=== PATIENT | female | born 1965 | race Hispanic/Latino ===

== ENCOUNTER 2016-11-02 03:14 | Emergency (ER) | payer OTHER ==
--- NOTE | 2016-11-02 03:24 | ED PDOC ---
Arrival/HPI - General Time Seen by Provider: 11/02/16 03:18 Historian: Patient - History of Present Illness Narrative History of Present Illness (Text): 11/02/16 03:31 Rebeca Merchant is a 51 year old female who presents to the emergency department for evaluation of allergic rash on face s/p applying Neutrogena makeup remover cream 2 days prior. States she developed redness and irritation to the face immediately after applying the cream, and was evaluated by drier operator helper yesterday, who started patient on a topical cream. Patient states that symptoms have not improved after applying the cream and notes of pain to right infraorbital area. States she took Tylenol for pain and other OTC allergy medications for minimal relief. Denies fever, chills, headache, swelling, throat pain, difficulty breathing, chest pain, nausea, vomiting, or any other complaints at this time. Time/Duration: < week (2 days ) Symptom Onset: Gradual Symptom Course: Unchanged Severity Level: Mild Activities at Onset: Light Past Medical History - Provider Review Nursing Documentation Reviewed: Yes - Infectious Disease Hx of Infectious Diseases: None - Tetanus Immunization Tetanus Immunization: Unknown - Past Medical History Past Medical History: No Previous - Cardiac Hx Pacemaker: No - Neurological Hx Paralysis: No - Hematological/Oncological Hx Blood Transfusions: No - Musculoskeletal/Rheumatological Hx Musculoskeletal Disorders: No - Psychiatric Hx Emotional Abuse: No Hx Physical Abuse: No Hx Substance Use: No - Past Surgical History Past Surgical History: No Previous - Anesthesia Hx Anesthesia Reactions: No Hx Malignant Hyperthermia: No - Suicidal Assessment Feels Threatened In Home Enviroment: No Family/Social History - Physician Review Nursing Documentation Reviewed: Yes Family/Social History: No Known Family HX Smoking Status: Never Smoked Hx Alcohol Use: No Hx Substance Use: No Hx Substance Use Treatment: No Allergies/Home Meds Allergies/Adverse Reactions: Allergies No Known Allergies Allergy (Verified 11/17/15 22:56) Home Medications: Home Meds Medication Instructions Recorded Confirmed Dexlansoprazole [Dexilant] 60 mg PO DAILY 12/11/13 11/20/15 Review of Systems - Physician Review All systems were reviewed & negative as marked: Yes - Review of Systems Constitutional: Normal. absent: Fatigue, Fevers Eyes: absent: Vision Changes, Photophobia Respiratory: absent: SOB, Cough, Sputum Cardiovascular: absent: Chest Pain, Palpitations Gastrointestinal: absent: Abdominal Pain, Diarrhea, Nausea, Vomiting Skin: Rash (redness and pain to face ) Neurological: Normal. absent: Headache, Dizziness Physical Exam Vital Signs Reviewed: Yes Vital Signs Temp Pulse Resp BP Pulse Ox 11/02/16 03:26 97.9 F 87 16 122/87 98 Temperature: Afebrile Blood Pressure: Normal Pulse: Regular Respiratory Rate: Normal Appearance: Positive for: Well-Appearing, Non-Toxic, Comfortable Pain Distress: None Mental Status: Positive for: Alert and Oriented X 3 - Systems Exam Head: Present: Atraumatic, Normocephalic, Other (mild erythematous swelling to forehead and raw area of dark erythema in right infraorbital area. ) Pupils: Present: PERRL Conjunctiva: Present: Normal Mouth: Present: Moist Mucous Membranes, Normal Lips, Normal Tounge. No: Dry Pharnyx: Present: Normal. No: ERYTHEMA, EXUDATE, TONSILS ENLARGED, Peritonsilar Swelling, Uvular Deviation, Muffled/Hoarse Voice, Strider, Soft Palate/Uvular Edema Respiratory/Chest: Present: Clear to Auscultation, Good Air Exchange. No: Respiratory Distress, Accessory Muscle Use Cardiovascular: Present: Regular Rate and Rhythm, Normal S1, S2. No: Murmurs Neurological: Present: GCS=15, CN II-XII Intact, Speech Normal, Motor Func Grossly Intact, Normal Sensory Function Skin: Present: Warm, Dry, Normal Color. No: Rashes Psychiatric: Present: Alert, Oriented x 3, Normal Insight, Normal Concentration Medical Decision Making ED Course and Treatment: 11/02/16 03:40 Impression: A 51 year old female who presents to the emergency department complaining of allergic reaction on face s/p applying neutrogena cream to the area. Differential Diagnosis include but are not limited to: allergic reaction. Plan: -- Atarax -- Prednisone -- Reassess and disposition Progress Notes: 11/02/16 03:42 Patient is stable for discharge. Advised to present to emergency department for worsening symptoms and followup with PMD within few days. 11/02/16 07:21 No concern for airway issues. Will d/c on steroids and atarax. - Medication Orders Current Medication Orders: Discontinued Medications Hydroxyzine HCl (Atarax) 50 mg PO ONCE STA Stop: 11/02/16 03:25 Last Admin: 11/02/16 03:38 Dose: 50 mg Prednisone (Prednisone Tab) 40 mg PO STAT STA Stop: 11/02/16 03:25 Last Admin: 11/02/16 03:37 Dose: 40 mg - Robertaibe Statement The provider has reviewed the documentation as recorded by the Shilpa Mendez Provider Attestation: All medical record entries made by the Shilpa were at my direction and personally dictated by me. I have reviewed the chart and agree that the record accurately reflects my personal performance of the history, physical exam, medical decision making, and the department course for this patient. I have also personally directed, reviewed, and agree with the discharge instructions and disposition. Disposition/Present on Arrival - Present on Arrival Any Indicators Present on Arrival: No History of DVT/PE: No History of Uncontrolled Diabetes: No Urinary Catheter: No History Surgical Site Infection Following: None - Disposition Have Diagnosis and Disposition been Completed?: Yes Diagnosis: Allergic reaction Disposition: HOME/ ROUTINE Disposition Time: 03:25 Patient Plan: Discharge Condition: GOOD Additional Instructions: Avoid neutrogena product(s). Take the prednisone and atarax as prescribed. Follow up with your primary care doctor and drier operator helper. Return to the emergency department if any new concerning symptoms. Prescriptions: hydrOXYzine HCl [Atarax] 1 tab PO Q6H PRN #20 tab PRN Reason: Rash predniSONE [Prednisone] 2 tab PO DAILY #6 tab Referrals: Rich Frederick MD [Staff Provider] - Follow up with primary
[2016-11-02 03:27] VITALS: BP 122/87; PULSE 87; RESP 16; TEMP 97.9; O2SAT 98; BMI 28.5
== END 2016-11-02 03:57 | disposition home or self-care (01) ==
LOC: ED 03:14
DX: T78.49XA Other allergy, initial encounter (principal); X58.XXXA Exposure to other specified factors, initial encounter

== ENCOUNTER 2017-06-17 06:41 | Day surgery (SDC) | payer OTHER ==
[2017-06-17 07:36] LABS: BASO # 0.02 K/mm3 (0.0-2.0); BASO % 0.5 % (0.0-3.0); EOS # 0.1 (0.0-0.7); EOS % 1.2 % (1.5-5.0); GRAN # 2.72 (1.4-6.5); GRAN % 65.5 % (50.0-68.0); HEMATOCRIT 38.8 % (36.0-48.0); LYMPH # 1.1 (1.2-3.4); LYMPH % 27.5 % (22.0-35.0); MEAN CELL VOLUME 92.8 fl (80.0-105.0); MEAN CORPUSCULAR HEMOGLOBIN 31.8 pg (25.0-35.0); MEAN CORPUSCULAR HGB CONC 34.3 g/dl (31.0-37.0); MEAN PLATELET VOLUME 11.2 fl (7.0-11.0); MONO # 0.2 (0.1-0.6); MONO % 5.3 % (1.0-6.0); RED CELL DISTRIBUTION WIDTH 12.6 % (11.5-14.5); WHITE BLOOD COUNT 4.2 10^3/ul (4.5-11.0)
[2017-06-17 07:46] LABS: INR 1.14 (0.93-1.08); PARTIAL THROMBOPLASTIN TIME 30.5 Seconds (25.1-36.5)
[2017-06-17] MEDS ORDERED: Propofol 10 mg/ml Inj (20 ML) ONE (07:56)
[2017-06-17] MEDS ORDERED: Sodium Chloride 0.9% 1,000 ML IV SCH (08:15)
[2017-06-17 08:31] VITALS: O2SAT 99
[2017-06-17] MEDS ORDERED: Lidocaine 1% Inj (20ml) ONE (08:36)
[2017-06-17 09:21] VITALS: BP 120/74; PULSE 59; RESP 20; TEMP 98.1
== END 2017-06-17 09:58 | disposition home or self-care (01) ==
LOC: ENDO 06:41
PROVIDERS: ATTEND Internal Medicine Gastroenterology
DX: K22.10 Ulcer of esophagus without bleeding (principal); K44.9 Diaphragmatic hernia without obstruction or gangrene; K29.70 Gastritis, unspecified, without bleeding; K29.80 Duodenitis without bleeding; K20.9 Esophagitis, unspecified
CPT/HCPCS: 36415; 43239; 84703; 85025; 85610; 85730; 88305; 88342; J2704; J3010; J7040 ×2

== ENCOUNTER 2017-08-19 06:33 | Day surgery (SDC) | payer OTHER ==
[2017-08-13 08:23] VITALS: BMI 27.4
[2017-08-19] MEDS ORDERED: Lidocaine 2% Inj (20ml) ONE (07:59)
[2017-08-19] MEDS ORDERED: Propofol 10 mg/ml Inj (20 ML) ONE (07:59)
[2017-08-19] MEDS ORDERED: Sodium Chloride 0.9% 1,000 ML IV SCH (08:30)
[2017-08-19 08:50] VITALS: O2SAT 99
[2017-08-19 09:23] VITALS: BP 113/69; PULSE 56; RESP 19; TEMP 97.9
== END 2017-08-19 09:52 | disposition home or self-care (01) ==
LOC: ENDO 06:33
PROVIDERS: ATTEND Internal Medicine Gastroenterology
DX: K21.0 Gastro-esophageal reflux disease with esophagitis (principal); K44.9 Diaphragmatic hernia without obstruction or gangrene; K29.70 Gastritis, unspecified, without bleeding; K29.80 Duodenitis without bleeding
CPT/HCPCS: 43239; 84703; 88305; 88342; J2704; J7040 ×2

== ENCOUNTER 2017-10-22 18:44 | Emergency (ER) | payer OTHER ==
[2017-10-22 18:46] VITALS: BMI 24.3
[2017-10-22 18:52] VITALS: BP 121/73; PULSE 69; RESP 18; TEMP 97.9; O2SAT 99
[2017-10-22] MEDS ORDERED: TDAP Vaccine 0.5 mL Syr IM ONE (21:17)
--- NOTE | 2017-10-22 23:47 | ED PDOC ---
Arrival/HPI - General Chief Complaint: Bite Historian: Patient - History of Present Illness Narrative History of Present Illness (Text): Pt is a 52 yr old female with no past medical history that presents to the ED with a dog bite to the right forearm that occurred 2 hrs earlier at home. Pt states she lives with friends that have a large dog that she is nervous around. When she arrived home today she entered the house and dog became defensive thus biting her, puncturing her right arm through a jacket she was wearing. Owners of the dog were contacted who say dog is up to date on all vaccinations including rabies. Pt is currently being treated for H.pylori and has 7 days of Amoxicillin and Clarithromycin remaining. Denies fever, loss of sensation or motor function of the left arm. Symptom Onset: Sudden Symptom Course: Unchanged Quality: Pressure Severity Level: 2, 3, Mild Activities at Onset: Rest Context: Home Past Medical History - Provider Review Nursing Documentation Reviewed: Yes - Travel History Have you recently traveled outside [place] w/in the past 3 mons?: No - Past History Past History: No Previous - Infectious Disease Hx of Infectious Diseases: None - Tetanus Immunization Tetanus Immunization: Unknown - Past Medical History Past Medical History: No Previous - Cardiac Hx Pacemaker: No - Neurological Hx Paralysis: No - Hematological/Oncological Hx Blood Transfusions: No - Musculoskeletal/Rheumatological Hx Musculoskeletal Disorders: No - Gastrointestinal Hx Gastrointestinal Ulcer: Yes - Psychiatric Hx Emotional Abuse: No Hx Physical Abuse: No Hx Substance Use: No - Past Surgical History Past Surgical History: No Previous - Anesthesia Hx Anesthesia Reactions: No - Suicidal Assessment Feels Threatened In Home Enviroment: No Family/Social History - Physician Review Nursing Documentation Reviewed: Yes Family/Social History: Unknown Family HX Smoking Status: Never Smoked Hx Alcohol Use: No Hx Substance Use: No Hx Substance Use Treatment: No Allergies/Home Meds Allergies/Adverse Reactions: Allergies No Known Allergies Allergy (Verified 11/17/15 22:56) Home Medications: Home Meds Medication Instructions Recorded Confirmed Omeprazole Magnesium [Prilosec Otc] 20 mg PO AMHS 06/17/17 10/22/17 Dexlansoprazole [Dexilant] 60 mg PO DAILY 08/19/17 10/22/17 Amoxicillin [Amoxil 500 mg Cap] 2 cap PO BID 10/22/17 10/22/17 Clarithromycin [Biaxin Filmtab] 1 tab PO BID 10/22/17 10/22/17 Review of Systems - Review of Systems Constitutional: Normal Eyes: Normal ENT: Normal Respiratory: Normal Cardiovascular: Normal Gastrointestinal: Normal Genitourinary Female: Normal Musculoskeletal: Normal Skin: Normal, Other (puncture wound due to dog tooth) Neurological: Normal Endocrine: Normal Hemo/Lymphatic: Normal Psychiatric: Normal Physical Exam Vital Signs Reviewed: Yes Vital Signs Temp Pulse Resp BP Pulse Ox 10/22/17 18:51 97.9 F 69 18 121/73 99 Temperature: Afebrile Blood Pressure: Normal Pulse: Regular Respiratory Rate: Normal Appearance: Positive for: Well-Appearing, Non-Toxic, Comfortable Pain Distress: Mild Mental Status: Positive for: Alert and Oriented X 3 - Systems Exam Head: Present: Atraumatic, Normocephalic Pupils: Present: PERRL Extroacular Muscles: Present: EOMI Conjunctiva: Present: Normal Mouth: Present: Moist Mucous Membranes Neck: Present: Normal Range of Motion Respiratory/Chest: Present: Clear to Auscultation, Good Air Exchange. No: Respiratory Distress, Accessory Muscle Use Cardiovascular: Present: Regular Rate and Rhythm, Normal S1, S2. No: Murmurs Abdomen: No: Tenderness, Distention, Peritoneal Signs Back: Present: Normal Inspection Upper Extremity: Present: Normal Inspection. No: Cyanosis, Edema Lower Extremity: Present: Normal Inspection. No: Edema Neurological: Present: GCS=15, CN II-XII Intact, Speech Normal Skin: Present: Warm, Dry, Normal Color, Other (Single puncture wound from a dog tooth, right arm). No: Rashes Psychiatric: Present: Alert, Oriented x 3, Normal Insight, Normal Concentration Medical Decision Making ED Course and Treatment: Impression Pt is a 52 yr old female with no past medical history that presents to the ED with a dog bite to the right forearm that occurred 2 hrs earlier at home. On exam, small, non-bleeding puncture wound of the right forearm on the posteromedial aspect inferior to the elbow. Plan Power irrigation of the wound dress Tetanus vaccination Counseled on wound care F/U with PMD in a [facility] system down from 7-9:30pm; pt received written d/c paper Disposition/Present on Arrival - Present on Arrival Any Indicators Present on Arrival: Yes History of DVT/PE: No History of Uncontrolled Diabetes: No Urinary Catheter: No History of Decub. Ulcer: No History Surgical Site Infection Following: None - Disposition Have Diagnosis and Disposition been Completed?: Yes Diagnosis: Dog bite, Puncture wound, Arm pain, right Disposition: HOME/ ROUTINE Disposition Time: 20:30 Patient Plan: Discharge Condition: GOOD Referrals: Ezekiel Hilton MD, PhD [Primary Care Provider] - Follow up with primary Forms: [employer] (Japanese)
== END 2017-10-22 22:10 | disposition home or self-care (01) ==
LOC: ED 18:44
DX: S51.831A Puncture wound without foreign body of right forearm, initial encounter (principal); W54.0XXA Bitten by dog, initial encounter; Y92.009 Unspecified place in unspecified non-institutional (private) residence as the place of occurrence of the external cause; M79.601 Pain in right arm; Z23 Encounter for immunization

== ENCOUNTER 2017-10-24 19:10 | Emergency (ER) | payer OTHER ==
[2017-10-24 19:10] VITALS: BMI 24.3
--- NOTE | 2017-10-24 19:35 | ED PDOC ---
Arrival/HPI - General Time Seen by Provider: 10/24/17 19:30 Historian: Patient - History of Present Illness Narrative History of Present Illness (Text): 10/24/17 19:31 52yo female who present to ED for her second rabies vaccine secondary to a dog bite. Patient was bitten by a friend dog on 10/22/17 and here today for her second rabies vaccine. She denies discharge, redness to the wound, fever, any other complaint. Past Medical History - Provider Review Nursing Documentation Reviewed: Yes - Past History Past History: No Previous - Infectious Disease Hx of Infectious Diseases: None - Tetanus Immunization Tetanus Immunization: Unknown - Past Medical History Past Medical History: No Previous - Cardiac Hx Pacemaker: No - Neurological Hx Paralysis: No - Hematological/Oncological Hx Blood Transfusions: No - Musculoskeletal/Rheumatological Hx Musculoskeletal Disorders: No - Gastrointestinal Hx Gastrointestinal Ulcer: Yes - Psychiatric Hx Emotional Abuse: No Hx Physical Abuse: No Hx Substance Use: No - Past Surgical History Past Surgical History: No Previous - Anesthesia Hx Anesthesia Reactions: No - Suicidal Assessment Feels Threatened In Home Enviroment: No Family/Social History - Physician Review Nursing Documentation Reviewed: Yes Family/Social History: Unknown Family HX Smoking Status: Never Smoked Hx Alcohol Use: No Hx Substance Use: No Hx Substance Use Treatment: No Allergies/Home Meds Allergies/Adverse Reactions: Allergies No Known Allergies Allergy (Verified 11/17/15 22:56) Home Medications: Home Meds Medication Instructions Recorded Confirmed Omeprazole Magnesium [Prilosec Otc] 20 mg PO AMHS 06/17/17 10/22/17 Dexlansoprazole [Dexilant] 60 mg PO DAILY 08/19/17 10/22/17 Amoxicillin [Amoxil 500 mg Cap] 2 cap PO BID 10/22/17 10/22/17 Clarithromycin [Biaxin Filmtab] 1 tab PO BID 10/22/17 10/22/17 Review of Systems - Physician Review All systems were reviewed & negative as marked: Yes - Review of Systems Constitutional: Normal Eyes: Normal ENT: Normal Respiratory: Normal Cardiovascular: Normal Gastrointestinal: Normal Genitourinary Female: Normal Musculoskeletal: Normal Skin: Other (Dog bite) Neurological: Normal Endocrine: Normal Hemo/Lymphatic: Normal Psychiatric: Normal Physical Exam Vital Signs Reviewed: Yes Vital Signs Temp Pulse Resp BP Pulse Ox 10/24/17 19:11 98.1 F 78 18 138/76 98 Temperature: Afebrile Blood Pressure: Normal Pulse: Regular Respiratory Rate: Normal Appearance: Positive for: Well-Appearing, Non-Toxic, Comfortable Pain Distress: None Mental Status: Positive for: Alert and Oriented X 3 - Systems Exam Head: Present: Atraumatic, Normocephalic Pupils: Present: PERRL Extroacular Muscles: Present: EOMI Conjunctiva: Present: Normal Mouth: Present: Moist Mucous Membranes Neck: Present: Normal Range of Motion Respiratory/Chest: Present: Clear to Auscultation, Good Air Exchange. No: Respiratory Distress, Accessory Muscle Use Cardiovascular: Present: Regular Rate and Rhythm, Normal S1, S2. No: Murmurs Abdomen: No: Tenderness, Distention, Peritoneal Signs Back: Present: Normal Inspection Upper Extremity: Present: Normal Inspection. No: Cyanosis, Edema Lower Extremity: Present: Normal Inspection. No: Edema Neurological: Present: GCS=15, CN II-XII Intact, Speech Normal Skin: Present: Warm, Dry, Normal Color, Other (Healing puncture wound on right forearm noted. No sign of infection). No: Rashes Psychiatric: Present: Alert, Oriented x 3, Normal Insight, Normal Concentration Medical Decision Making - Medication Orders Current Medication Orders: Discontinued Medications Rabies Vaccine Human Diploid Cell (Imovax Rabies) 2.5 units IM .ONCE ONE Stop: 10/24/17 19:36 Disposition/Present on Arrival - Present on Arrival Any Indicators Present on Arrival: No History of DVT/PE: No History of Uncontrolled Diabetes: No Urinary Catheter: No History Surgical Site Infection Following: None - Disposition Have Diagnosis and Disposition been Completed?: Yes Diagnosis: Dog bite Disposition: HOME/ ROUTINE Disposition Time: 19:45 Patient Plan: Discharge Patient Problems: Current Active Problems Problem Status Onset Dog bite Acute Condition: STABLE Discharge Instructions (ExitCare): Animal Bites (DC) Additional Instructions: follow up with your doctor Return to ED on 10/28, 11/04 for remain vaccines Return to ED for any new symptoms Referrals: [facility] [place] [Outside] - Follow up with primary
[2017-10-24 20:02] VITALS: BP 138/76; PULSE 78; RESP 18; TEMP 98.1; O2SAT 98
== END 2017-10-24 20:14 | disposition home or self-care (01) ==
LOC: ED 19:10
DX: Z23 Encounter for immunization (principal); W54.0XXA Bitten by dog, initial encounter

== ENCOUNTER 2018-02-04 10:34 | Emergency (ER) | payer OTHER ==
[2018-02-04 11:09] VITALS: BMI 23.7
[2018-02-04 11:16] VITALS: RESP 18; TEMP 97.7
--- NOTE | 2018-02-04 11:29 | ED PDOC ---
Arrival/HPI - General Chief Complaint: Abnormal Skin Integrity Time Seen by Provider: 02/04/18 11:23 Historian: Patient - History of Present Illness Narrative History of Present Illness (Text): 02/04/18 53 yo female come in for evaluation of Right cheek " skin irritation" developed 2 days ago " burned with some liquid". Pt reports, had similar sx in past when was treated with Prednisone, Atarax and request same treatment now. Pt also reports, was on sun 2 days ago and sustained sunburn to lower back, B/L thighs. Pt has hx of peptic ulcer and request refill on Omeprazole. Otherwise, pt denies fever, chills, throat tightness or swelling, CP, SOB, dyspnea, wheezing, palpitation, abd. pain, N/V, denies any other active complaints. Ambulate to Ed for evaluation, not in any apparent distress. Past Medical History - Provider Review Nursing Documentation Reviewed: Yes - Travel History Have you recently traveled outside [place] w/in the past 3 mons?: No - Past History Past History: No Previous - Infectious Disease Hx of Infectious Diseases: None - Tetanus Immunization Tetanus Immunization: Unknown - Reproductive Menopause: Yes - Past Medical History Past Medical History: No Previous - Cardiac Hx Cardiac Disorders: No Hx Pacemaker: No - Neurological Hx Paralysis: No - Hematological/Oncological Hx Blood Transfusions: No - Musculoskeletal/Rheumatological Hx Musculoskeletal Disorders: No - Gastrointestinal Hx Gastrointestinal Ulcer: Yes - Psychiatric Hx Emotional Abuse: No Hx Physical Abuse: No Hx Substance Use: No - Past Surgical History Past Surgical History: No Previous - Anesthesia Hx Anesthesia Reactions: No - Suicidal Assessment Feels Threatened In Home Enviroment: No Family/Social History - Physician Review Nursing Documentation Reviewed: Yes Family/Social History: No Known Family HX Smoking Status: Never Smoked Hx Alcohol Use: No Hx Substance Use: No Hx Substance Use Treatment: No Allergies/Home Meds Allergies/Adverse Reactions: Allergies No Known Allergies Allergy (Verified 02/04/18 11:18) Home Medications: Home Meds Medication Instructions Recorded Confirmed Omeprazole Magnesium [Prilosec Otc] 20 mg PO AMHS 06/17/17 02/04/18 Dexlansoprazole [Dexilant] 60 mg PO DAILY 08/19/17 02/04/18 Review of Systems - Physician Review All systems were reviewed & negative as marked: Yes - Review of Systems Constitutional: Normal Eyes: Normal ENT: absent: Sore Throat Respiratory: absent: SOB, Cough, Sputum Cardiovascular: absent: Chest Pain, Palpitations Gastrointestinal: absent: Abdominal Pain, Nausea, Vomiting Musculoskeletal: Normal Skin: Rash Neurological: absent: Headache, Dizziness Endocrine: Normal Hemo/Lymphatic: Normal Psychiatric: Normal Physical Exam Vital Signs Reviewed: Yes Vital Signs Temp Pulse Resp BP Pulse Ox 02/04/18 11:08 97.7 F 73 18 117/53 L 97 Temperature: Afebrile Blood Pressure: Normal Pulse: Regular Respiratory Rate: Normal Appearance: Positive for: Well-Appearing, Non-Toxic, Comfortable Pain Distress: None Mental Status: Positive for: Alert and Oriented X 3 - Systems Exam Conjunctiva: Present: Normal Mouth: Present: Moist Mucous Membranes, Normal Lips. No: Drooling Pharnyx: Present: Other (uvual midline, no edema.). No: Uvular Deviation Neck: Present: Trachea Midline. No: JVD, Bruit Respiratory/Chest: Present: Clear to Auscultation, Good Air Exchange. No: Respiratory Distress, Accessory Muscle Use Cardiovascular: Present: Regular Rate and Rhythm, Normal S1, S2. No: Murmurs Abdomen: No: Tenderness, Distention, Peritoneal Signs Upper Extremity: Present: Normal ROM. No: Edema Lower Extremity: Present: Normal ROM. No: Edema, Swelling, Deformity Neurological: Present: GCS=15, Speech Normal Skin: Present: Warm, Dry, Rashes (small area of dry skin likely c/w chemical burn over Right cheek area. NO edema, no discharges, no erythema, no proximal streaking.), Other (diffuse skin erythema over mid and lower back area extend down to B/L gluteal, B/L posterior thighs area. No edema, no weeping.) Psychiatric: Present: Alert, Oriented x 3 Medical Decision Making ED Course and Treatment: 02/04/18 On re-evaluation, pt is afebrile, hemodynamicaly stable. Non-toxic, tolerate Po well in ED. Ambulatory. PusleOx 97% RA ENT: no acute findings. uvula midline, no edema. Neck: Supple, (-) JVD, (-) meningeal sign Lungs: CTA B/L, BS equal B/L Abd: benign. Skin: exam c/w mild 1cm area of chemical burn to Right cheek and diffuse area of erythema lwoer back, B/L thighs c/w sunburn. NO evidence of cellulitis. ref. to f/u with PMD, Derm in 2-3 days for re-eval. return to ED if any worsening or new changes. - Medication Orders Current Medication Orders: Discontinued Medications Hydroxyzine HCl (Atarax) 50 mg PO STAT STA Stop: 02/04/18 11:26 Prednisone (Prednisone Tab) 40 mg PO STAT STA Stop: 02/04/18 11:26 Disposition/Present on Arrival - Present on Arrival Any Indicators Present on Arrival: No History of DVT/PE: No History of Uncontrolled Diabetes: No Urinary Catheter: No History of Decub. Ulcer: No History Surgical Site Infection Following: None - Disposition Have Diagnosis and Disposition been Completed?: Yes Diagnosis: Sunburn, Allergic reaction to chemical substance, Medication refill, Peptic ulcer Disposition: HOME/ ROUTINE Disposition Time: 11:25 Patient Plan: Discharge Patient Problems: Current Active Problems Problem Status Onset Sunburn Acute Allergic reaction to chemical substance Acute Condition: STABLE Discharge Instructions (ExitCare): Sunburn, Contact Dermatitis (DC) Additional Instructions: take medication as prescribed Apply vaseline to face for moisturizing Apply Sunscreen to prevent sunburn Follow up with PMD, Dermatology in2 -3 days for re-evaluation. return to ED if any worsening or new changes. Prescriptions: hydrOXYzine HCl [Atarax] 25 mg PO Q12 #10 tab Omeprazole 40 mg PO DAILY #10 capsule. Prednisone [Deltasone] 20 mg PO DAILY #4 tablet Referrals: Ezekiel Hilton MD, PhD [Primary Care Provider] - Follow up with primary Forms: [employer] (Divehi)
[2018-02-04 11:57] VITALS: BP 120/60; PULSE 82; O2SAT 98
== END 2018-02-04 11:56 | disposition home or self-care (01) ==
LOC: ED 10:34
DX: Z76.0 Encounter for issue of repeat prescription (principal); K27.9 Peptic ulcer, site unspecified, unspecified as acute or chronic, without hemorrhage or perforation; L55.9 Sunburn, unspecified; T65.91XA Toxic effect of unspecified substance, accidental (unintentional), initial encounter

== ENCOUNTER 2018-02-24 06:18 | Day surgery (SDC) | payer OTHER ==
[2018-02-24] MEDS ORDERED: Lactated Ringer's 1,000 ML IV SCH (07:45)
[2018-02-24] MEDS ORDERED: Propofol 10 mg/ml Inj (20 ML) ONE (07:52)
[2018-02-24] MEDS ORDERED: Phenylephrine 10 mg/ml Inj ONE (07:58)
[2018-02-24 08:58] VITALS: O2SAT 99
[2018-02-24 09:27] VITALS: BP 117/73; PULSE 55; RESP 17; TEMP 97.8
== END 2018-02-24 09:46 | disposition home or self-care (01) ==
LOC: ENDO 06:18
PROVIDERS: ATTEND Internal Medicine Gastroenterology
DX: K25.9 Gastric ulcer, unspecified as acute or chronic, without hemorrhage or perforation (principal); K29.50 Unspecified chronic gastritis without bleeding; K44.9 Diaphragmatic hernia without obstruction or gangrene; K22.10 Ulcer of esophagus without bleeding; K29.80 Duodenitis without bleeding
CPT/HCPCS: 43239; 84703; 88305; 88342; J2001; J2370; J2704; J7040; J7120

== ENCOUNTER 2018-07-21 06:39 | Day surgery (SDC) | payer OTHER ==
[2018-07-21] MEDS ORDERED: Propofol 10 mg/ml Inj (20 ML) ONE (07:30)
[2018-07-21] MEDS ORDERED: Midazolam 2 MG/2 ML VIAL ONE (07:30)
[2018-07-21] MEDS ORDERED: Sodium Chloride 0.9% 1,000 ML IV SCH (08:45)
[2018-07-21 08:50] VITALS: O2SAT 100
[2018-07-21 10:45] VITALS: BP 108/65; PULSE 51; RESP 18; TEMP 98
== END 2018-07-21 10:05 | disposition home or self-care (01) ==
LOC: ENDO 06:39
PROVIDERS: ATTEND Internal Medicine Gastroenterology
DX: K21.0 Gastro-esophageal reflux disease with esophagitis (principal); K29.50 Unspecified chronic gastritis without bleeding; K25.9 Gastric ulcer, unspecified as acute or chronic, without hemorrhage or perforation; K29.80 Duodenitis without bleeding; K44.9 Diaphragmatic hernia without obstruction or gangrene; R10.13 Epigastric pain

== ENCOUNTER 2018-08-04 21:08 | Emergency (ER) | payer OTHER ==
[2018-08-04 21:08] VITALS: BMI 23.7
--- NOTE | 2018-08-05 01:39 | ED PDOC ---
Arrival/HPI - General Historian: Patient - History of Present Illness Narrative History of Present Illness (Text): 08/05/18 01:39 53-year-old female presents today with right arm pain that started on Jul 24. Patient states that 2 weeks ago she had an IV placed in the right hand when she had an endoscopy on Jul 21. Patient states 3 days after the endoscopy she developed pain in the right arm. Patient states she spoke with the nurse who advised her to do warm compresses for which she's been doing since. Patient states she is still having the pain in the right arm so she decided to come to the emergency room for evaluation. Patient also states that she's had 2 spots of redness on her upper lips that have been present for almost a week. Patient states the lesions are no longer painful but there have not resolved. <Trisha Burt - Last Filed: 08/05/18 01:35> <Ricky Hook - Last Filed: 08/05/18 02:11> - General Chief Complaint: Upper Extremity Problem/Injury Time Seen by Provider: 08/04/18 22:37 Past Medical History - Provider Review Nursing Documentation Reviewed: Yes - Past History Past History: No Previous - Infectious Disease Hx of Infectious Diseases: None - Tetanus Immunization Tetanus Immunization: Unknown - Past Medical History Past Medical History: No Previous - Cardiac Hx Pacemaker: No - Neurological Hx Paralysis: No - Hematological/Oncological Hx Blood Transfusions: No - Musculoskeletal/Rheumatological Hx Musculoskeletal Disorders: No - Gastrointestinal Hx Gastrointestinal Ulcer: Yes - Psychiatric Hx Emotional Abuse: No Hx Physical Abuse: No Hx Substance Use: No - Past Surgical History Past Surgical History: No Previous - Anesthesia Hx Anesthesia Reactions: No Hx Malignant Hyperthermia: No - Suicidal Assessment Feels Threatened In Home Enviroment: No <Trisha Burt - Last Filed: 08/05/18 01:35> Family/Social History - Physician Review Nursing Documentation Reviewed: Yes Family/Social History: Unknown Family HX Smoking Status: Never Smoked Hx Alcohol Use: No Hx Substance Use: No Hx Substance Use Treatment: No <Trisha Burt - Last Filed: 08/05/18 01:35> Allergies/Home Meds <Trisha Burt - Last Filed: 08/05/18 01:35> <Ricky Hook - Last Filed: 08/05/18 02:11> Allergies/Adverse Reactions: Allergies No Known Allergies Allergy (Verified 02/04/18 11:18) Home Medications: Home Meds Medication Instructions Recorded Confirmed Dexlansoprazole [Dexilant] 60 mg PO DAILY 08/19/17 07/21/18 Leaky Gut 1 tab PO DAILY 07/21/18 07/21/18 Review of Systems - Review of Systems Constitutional: absent: Fatigue, Fevers Respiratory: absent: SOB, Cough Cardiovascular: absent: Chest Pain, Palpitations Gastrointestinal: absent: Abdominal Pain, Nausea, Vomiting Musculoskeletal: Arthralgias (right arm pain). absent: Back Pain, Neck Pain Skin: Skin Lesions (to lower lips). absent: Rash, Pruritis Neurological: absent: Headache, Dizziness Psychiatric: absent: Anxiety, Depression <Trisha Burt T - Last Filed: 08/05/18 01:35> Physical Exam Vital Signs Reviewed: Yes Vital Signs Temp Pulse Resp BP Pulse Ox 08/05/18 00:23 98.3 F 70 16 98 08/04/18 22:33 97.4 F L 73 18 109/62 100 Temperature: Afebrile Blood Pressure: Normal Pulse: Regular Respiratory Rate: Normal Appearance: Positive for: Well-Appearing, Non-Toxic, Comfortable Pain Distress: None Mental Status: Positive for: Alert and Oriented X 3 - Systems Exam Head: Present: Atraumatic Mouth: Present: Moist Mucous Membranes. No: Drooling, Trismus, Normal Lips (there are 2 Small crusted lesions noted to the upper lip. non tender. ) Pharnyx: Present: Normal Nose (External): Present: Atraumatic Neck: Present: Normal Range of Motion Respiratory/Chest: Present: Clear to Auscultation, Good Air Exchange. No: Respiratory Distress, Accessory Muscle Use Cardiovascular: Present: Regular Rate and Rhythm, Normal S1, S2. No: Murmurs Upper Extremity: Present: Normal Inspection, Normal ROM, NORMAL PULSES, Neurovascularly Intact, Capillary Refill < 2s. No: Tenderness, Swelling, Erythema, Deformity Neurological: Present: GCS=15, Speech Normal Skin: Present: Warm, Dry Psychiatric: Present: Alert, Oriented x 3 <Trisha Burt T - Last Filed: 08/05/18 01:35> Vital Signs Temp Pulse Resp BP Pulse Ox 08/05/18 00:23 98.3 F 70 16 98 08/04/18 22:33 97.4 F L 73 18 109/62 100 <Ricky Hook - Last Filed: 08/05/18 02:11> Medical Decision Making ED Course and Treatment: 08/05/18 01:39 53-year-old female with right arm pain and lesions on the lips for over one week. Patient is status post endoscopy on July 21. Venous duplex of the right upper extremity reveals no DVT. Patient reassessment: Patient nontoxic well-appearing no distress with stable vital signs. I discussed all results in depth with the patient advised follow-up with primary care physician within the next 2 days. Advised using Abreva on the lip lesions. Advised immediate return if symptoms worsen persist or if new concerning symptoms develop. Patient verbalizes understanding of discharge instructions and need for immediate followup. all aspects of this case were discussed the attending of record. Impression: Arm pain, rash tylenol every 4 hours as needed for pain abreva; apply 3-4 times daily as needed for rash follow up with the primary care physician within the next 2 days. return if symptoms worsen,persist or if new symptoms develop - RAD Interpretation Radiology Orders: 08/04/18 23:31 DUPLEX UPPER EXTRM VEIN RIGHT [US] Stat <Trisha Brut - Last Filed: 08/05/18 01:35> - RAD Interpretation Radiology Orders: 08/04/18 23:31 DUPLEX UPPER EXTRM VEIN RIGHT [US] Stat <Ricky Hook - Last Filed: 08/05/18 02:11> - PA / CHIEF SOLUTION ARCHITECT / Resident Statement / has reviewed & agrees with the documentation as recorded. <Ricky Hook - Last Filed: 08/05/18 02:11> Disposition/Present on Arrival - Present on Arrival Any Indicators Present on Arrival: No History of DVT/PE: No History of Uncontrolled Diabetes: No Urinary Catheter: No History of Decub. Ulcer: No History Surgical Site Infection Following: None - Disposition Have Diagnosis and Disposition been Completed?: Yes Disposition Time: 01:00 Patient Plan: Discharge <Trisha Burt - Last Filed: 08/05/18 01:35> <Ricky Hook - Last Filed: 08/05/18 02:11> - Disposition Diagnosis: Arm pain, Rash on lips Disposition: HOME/ ROUTINE Patient Problems: Current Active Problems Problem Status Onset Arm pain Acute Rash on lips Acute Condition: GOOD Additional Instructions: tylenol every 4 hours as needed for pain abreva; apply 3-4 times daily as needed for rash follow up with the primary care physician within the next 2 days. return if symptoms worsen,persist or if new symptoms develop Prescriptions: Docosanol [Abreva] 1 cre TP QID #1 cre Referrals: Ezekiel Hilton MD, PhD [Primary Care Provider] - Follow up with primary Forms: [employer] ([employer]), WORK NOTE
[2018-08-05 02:34] VITALS: BP 125/76; PULSE 76; RESP 18; TEMP 98.2; O2SAT 100
--- NOTE | 2018-08-05 20:52 | US ---
PROCEDURE: Right upper extremity venous US CLINICAL HISTORY: Arm pain and swelling Evaluate for deep venous thrombosis. PHYSICIAN(S): Behzad Garcia M.D FINDINGS: The visualized rightinternal jugular vein is sonographically normal and compressible. No evidence of obstruction or thrombus is seen. The visualized segments of the right subclavian vein are patent with normal waveforms. No sonographic evidence of obstruction or thrombosis is seen. The visualized deep venous system of the proximal right upper extremity is sonographically normal and compressible. IMPRESSION: 1. No sonographic evidence for deep venous thrombosis in the visualized segments of the right upper extremity.
== END 2018-08-05 02:34 | disposition home or self-care (01) ==
LOC: ED 21:08
DX: R21 Rash and other nonspecific skin eruption (principal); M79.601 Pain in right arm